=== PATIENT | male | born 1930 | race Asian ===

== ENCOUNTER 2020-10-11 14:52 | Emergency (ER) | payer OTHER ==
[~2020-10-11] VITALS: Ht 165.1 cm; Wt 89.0 kg
[~2020-10-11 14:52] MED LIST: ASPIRIN; PLAVIX
[2020-10-11] MEDS ORDERED: ACETAMINOPHEN WITH CODEINE 300/30MG TABLET PO ONE (17:15)
[2020-10-11 17:53] LABS: BASOPHILS % 0.8 % (0.0-2.0); EOSINOPHILS % 2.7 % (0.0-5.0); HEMATOCRIT. 37.6 % (42.0-52.0); HEMOGLOBIN. 12.6 g/dL (14.0-18.0); LYMPHOCYTES % 14.4 % (20.0-50.0); MEAN CORPUSCULAR HEMOGLOBIN 31.2 pg (28.0-32.0); MEAN CORPUSCULAR VOLUME 93.5 fL (80.0-94.0); MEAN PLATELET VOLUME 6.8 fl (7.4-10.4); MONOCYTES % 6.7 % (2.0-8.0); NEUTROPHILS % 75.4 % (40.0-76.0); PLATELET 194 x1000/uL (130-400); RED BLOOD CELL COUNT 4.02 mill/uL (4.7-6.1); RED CELL DISTRIBUTION WIDTH 13.6 % (11.6-14.6)
[2020-10-11 18:00] LABS: CHLORIDE 104 mEq/L (98-107)
[2020-10-11 18:06] LABS: CLARITY URINE CLEAR (CLEAR); COLOR URINE YELLOW (YELLOW); KETONES URINE NEGATIVE (NEGATIVE); LEUKOCYTE ESTERASE URINE NEGATIVE (NEGATIVE); NITRITE URINE NEGATIVE (NEGATIVE); OCCULT BLOOD URINE 2+ (NEGATIVE); PROTEIN URINE 1+ (NEGATIVE); SPECIFIC GRAVITY URINE 1.006 (1.005-1.030); UROBILINOGEN URINE 0.2 E.U./dL (0.2-1.0)
[2020-10-11] MEDS ORDERED: CYCL10TA7 MT (19:37)
[2020-10-11] MEDS ORDERED: KETOROLAC 60MG/2ML VIAL IM ONE (19:45)
[2020-10-11 20:07] VITALS: BP 98/64
== END 2020-10-11 20:21 | disposition home or self-care (01) ==
LOC: ER 14:52
DX: M54.5 Low back pain (principal); Z88.5 Allergy status to narcotic agent
CPT/HCPCS: 36415; 72131; 80053; 81003; 85025; 96372; 99284; J1885

== ENCOUNTER 2021-02-03 10:31 | Inpatient (IN) | payer OTHER ==
[~2021-02-03] VITALS: Ht 160 cm; Wt 48.1 kg
[~2021-02-03 10:31] MED LIST changes: +CYCL10TA7 MT
[2021-02-03] MEDS ORDERED: ONDANSETRON HCL 4MG/2ML INJ IV ONE (11:00)
[2021-02-03 11:32] LABS: BASOPHILS % 0.5 % (0.0-2.0); EOSINOPHILS % 0.6 % (0.0-5.0); HEMATOCRIT. 37.1 % (42.0-52.0); HEMOGLOBIN. 12.9 g/dL (14.0-18.0); MEAN CORPUSCULAR HEMOGLOBIN 32.5 pg (28.0-32.0); MEAN CORPUSCULAR VOLUME 93.3 fL (80.0-94.0); MEAN PLATELET VOLUME 6.6 fl (7.4-10.4); MONOCYTES % 8.2 % (2.0-8.0); NEUTROPHILS % 80.7 % (40.0-76.0); PLATELET 257 x1000/uL (130-400); RED BLOOD CELL COUNT 3.98 mill/uL (4.7-6.1)
[2021-02-03 11:34] LABS: CHLORIDE 94 mEq/L (98-107)
[2021-02-03 11:38] LABS: PROTHROMBIN TIME 10.9 sec (9.6-11.0)
[2021-02-03] MEDS ORDERED: SODIUM CHLORIDE 0.9% 1,000 ML IV ONE (12:15)
[2021-02-03] MEDS ORDERED: KETOROLAC 30MG/ML VIAL IV ONE (12:45)
[2021-02-03 13:15] LABS: CLARITY URINE CLEAR (CLEAR); COLOR URINE YELLOW (YELLOW); KETONES URINE 1+ (NEGATIVE); LEUKOCYTE ESTERASE URINE NEGATIVE (NEGATIVE); NITRITE URINE NEGATIVE (NEGATIVE); OCCULT BLOOD URINE 2+ (NEGATIVE); PH URINE 5.5 (4.5-8.0); PROTEIN URINE 1+ (NEGATIVE); SPECIFIC GRAVITY URINE 1.007 (1.005-1.030); UROBILINOGEN URINE 0.2 E.U./dL (0.2-1.0)
[2021-02-03] MEDS ORDERED: CLONIDINE 0.1MG TABLET PO PRN (14:45)
[2021-02-03] MEDS ORDERED: KETOROLAC 15MG/ML VIAL IV PRN (14:45)
[2021-02-03] MEDS ORDERED: IPRATROPIUM/ALBUTEROL 0.5-3(2.5)MG/3ML NEB NEB PRN (14:45)
[2021-02-03] MEDS ORDERED: ACETAMINOPHEN 325MG TABLET PO PRN ×2 (14:45)
[2021-02-03] MEDS ORDERED: NITROGLYCERIN 0.4MG TABLET SL SL PRN (14:45)
[2021-02-03] MEDS ORDERED: MAGNESIUM/ALUMINUM HYDROXIDE/SIMETHICONE 30ML UDC PO PRN (14:45)
[2021-02-03] MEDS ORDERED: GUAIFENESIN 200MG/10ML SUGAR FREE UDC PO PRN (14:45)
[2021-02-03] MEDS ORDERED: ENOXAPARIN 40MG/0.4ML SYR SUBCUT SCH (15:00)
[2021-02-03] MEDS: SODIUM CHLORIDE 0.9% 1,000 ML IV SCH (15:00)
[2021-02-03 16:05] LABS: ETHANOL BLOOD < 10 mg/dL
[2021-02-03 16:07] LABS: TOTAL IRON BINDING CAPACITY 344 ug/dL (250-450)
[2021-02-03 16:08] LABS: LDL CHOLESTEROL 130 mg/dL (5-100)
[2021-02-03 16:09] LABS: HDL CHOLESTEROL 56 mg/dL (40-59)
[2021-02-03 16:10] LABS: T4 FREE 1.47 ng/dL (0.76-1.46)
[2021-02-03 16:20] LABS: FOLIC ACID (FOLATE) SERUM 15.4 ng/mL (>5.38)
[2021-02-03 16:55] VITALS: BP 155/79
[2021-02-03] MEDS: ONDANSETRON HCL 4MG/2ML INJ IV PRN (18:33)
[2021-02-03] MEDS ORDERED: GABA-532 MT (19:00)
[2021-02-03] MEDS ORDERED: PNEUMOCOCCAL 23-VAL P-SAC VAC 0.5 ML IM ONE (19:30)
[2021-02-03 20:00] VITALS: BP 127/68
[2021-02-03] MEDS: ASCORBIC ACID 500 MG TABLET PO SCH (20:39)
[2021-02-03] MEDS: FAMOTIDINE 20MG TABLET PO SCH (20:39)
[2021-02-03] MEDS: ZOLPIDEM TARTRATE 5MG TABLET PO PRN (21:48)
[2021-02-03] MEDS: ENOXAPARIN 60MG/0.6ML SYR SUBCUT SCH (23:26)
[2021-02-04] VITALS: BP 136/79
[2021-02-04 00:09] LABS: CREATINE KINASE 43 IU/L (39-308)
[2021-02-04 00:11] LABS: CREATINE KINASE MB FRACTION 1.7 ng/mL (0.5-3.6)
[2021-02-04 04:00] VITALS: BP 124/69
[2021-02-04] MEDS: SODIUM CHLORIDE 0.9% 1,000 ML IV SCH ×2 (04:53→17:59)
[2021-02-04] MEDS: ONDANSETRON HCL 4MG/2ML INJ IV PRN ×3 (06:25→17:59)
[2021-02-04 07:14] LABS: EOSINOPHILS % 2.7 % (0.0-5.0); HEMATOCRIT. 32.1 % (42.0-52.0); HEMOGLOBIN. 10.9 g/dL (14.0-18.0); LYMPHOCYTES % 17.3 % (20.0-50.0); MEAN CORPUSCULAR VOLUME 94.5 fL (80.0-94.0); MEAN PLATELET VOLUME 6.7 fl (7.4-10.4); MONOCYTES % 11.8 % (2.0-8.0); NEUTROPHILS % 67.2 % (40.0-76.0); PLATELET 214 x1000/uL (130-400); RED CELL DISTRIBUTION WIDTH 12.8 % (11.6-14.6)
[2021-02-04 07:17] LABS: CHLORIDE 101 mEq/L (98-107)
[2021-02-04 07:27] LABS: PHOSPHORUS 3.2 mg/dL (2.5-4.9)
[2021-02-04 07:29] LABS: CREATINE KINASE 40 IU/L (39-308)
[2021-02-04 07:33] LABS: CREATINE KINASE MB FRACTION 1.7 ng/mL (0.5-3.6)
[2021-02-04 08:00] VITALS: BP 144/73
[2021-02-04] MEDS: ASCORBIC ACID 500 MG TABLET PO SCH ×2 (08:22→20:43)
[2021-02-04] MEDS: ASPIRIN 325MG EC TABLET PO SCH (08:25)
[2021-02-04] MEDS: DOCUSATE SODIUM 100MG CAPSULE PO PRN (08:25)
[2021-02-04] MEDS: ZINC SULFATE 220 MG ( 50 ) CAPSULE PO SCH (08:25)
[2021-02-04] MEDS: CLOPIDOGREL 75MG TABLET PO SCH (08:25)
[2021-02-04] MEDS: CHOLECALCIFEROL (D3) 1000 UNIT TABLET PO SCH (08:25)
[2021-02-04] MEDS: ENOXAPARIN 60MG/0.6ML SYR SUBCUT SCH ×2 (08:26→20:43)
[2021-02-04] MEDS ORDERED: IOHEXOL-350 100 ML BOTTLE ONE (10:34)
[2021-02-04 12:00] VITALS: BP 141/73
[2021-02-04 16:00] VITALS: BP 120/63
[2021-02-04 20:00] VITALS: BP 125/74
[2021-02-04] MEDS: FAMOTIDINE 20MG TABLET PO SCH (20:43)
[2021-02-04] MEDS: ZOLPIDEM TARTRATE 5MG TABLET PO PRN (22:35)
[2021-02-05] VITALS: BP 138/74
[2021-02-05 04:00] VITALS: BP 140/75
[2021-02-05] MEDS ORDERED: PNEUMOCOCCAL 23-VAL P-SAC VAC 0.5 ML IM ONE (06:00)
[2021-02-05] MEDS: SODIUM CHLORIDE 0.9% 1,000 ML IV SCH ×2 (06:15→21:26)
[2021-02-05 06:54] LABS: CHLORIDE 107 mEq/L (98-107)
[2021-02-05 06:56] LABS: BASOPHILS % 0.7 % (0.0-2.0); EOSINOPHILS % 2.5 % (0.0-5.0); HEMATOCRIT. 34.1 % (42.0-52.0); HEMOGLOBIN. 11.6 g/dL (14.0-18.0); MEAN CORPUSCULAR HEMOGLOBIN 31.7 pg (28.0-32.0); MEAN CORPUSCULAR VOLUME 93.5 fL (80.0-94.0); MEAN PLATELET VOLUME 6.6 fl (7.4-10.4); MONOCYTES % 10.3 % (2.0-8.0); NEUTROPHILS % 68.5 % (40.0-76.0); PLATELET 251 x1000/uL (130-400); RED BLOOD CELL COUNT 3.64 mill/uL (4.7-6.1); RED CELL DISTRIBUTION WIDTH 13.3 % (11.6-14.6)
[2021-02-05 08:00] VITALS: BP 156/74
[2021-02-05] MEDS: CHOLECALCIFEROL (D3) 1000 UNIT TABLET PO SCH (09:37)
[2021-02-05] MEDS: ENOXAPARIN 60MG/0.6ML SYR SUBCUT SCH (09:37)
[2021-02-05] MEDS: ZINC SULFATE 220 MG ( 50 ) CAPSULE PO SCH (09:38)
[2021-02-05] MEDS: ASPIRIN 325MG EC TABLET PO SCH (09:38)
[2021-02-05] MEDS: CLOPIDOGREL 75MG TABLET PO SCH (09:38)
[2021-02-05] MEDS: ASCORBIC ACID 500 MG TABLET PO SCH ×2 (09:38→21:26)
[2021-02-05] MEDS: DOCUSATE SODIUM 100MG CAPSULE PO PRN (09:38)
[2021-02-05] MEDS ORDERED: POTASSIUM CHLORIDE 20MEQ/PACKET PO SCH (10:45)
[2021-02-05 12:00] VITALS: BP 133/68
[2021-02-05 16:00] VITALS: BP 132/72
[2021-02-05 20:00] VITALS: BP 135/80
[2021-02-05] MEDS: ZOLPIDEM TARTRATE 5MG TABLET PO PRN (21:26)
[2021-02-05] MEDS: FAMOTIDINE 20MG TABLET PO SCH (21:26)
[2021-02-06 00:36] VITALS: BP 149/80
[2021-02-06 04:00] VITALS: BP 149/77
[2021-02-06 08:00] VITALS: BP 138/75
[2021-02-06] MEDS: CHOLECALCIFEROL (D3) 1000 UNIT TABLET PO SCH (08:50)
[2021-02-06] MEDS: ZINC SULFATE 220 MG ( 50 ) CAPSULE PO SCH (08:50)
[2021-02-06] MEDS: DOCUSATE SODIUM 100MG CAPSULE PO PRN (08:50)
[2021-02-06] MEDS: CLOPIDOGREL 75MG TABLET PO SCH (08:51)
[2021-02-06] MEDS: ASPIRIN 325MG EC TABLET PO SCH (08:51)
[2021-02-06] MEDS: SODIUM CHLORIDE 0.9% 1,000 ML IV SCH ×2 (08:51→20:58)
[2021-02-06] MEDS: ASCORBIC ACID 500 MG TABLET PO SCH ×2 (08:51→20:52)
[2021-02-06 12:00] VITALS: BP 126/73
[2021-02-06 16:00] VITALS: BP 140/76
[2021-02-06] MEDS: ONDANSETRON HCL 4MG/2ML INJ IV PRN (19:08)
[2021-02-06 20:00] VITALS: BP_SYST 127; BP_SYST 142; BP_DIAS 75; BP_DIAS 77
[2021-02-06] MEDS: FAMOTIDINE 20MG TABLET PO SCH (20:52)
[2021-02-06] MEDS: ZOLPIDEM TARTRATE 5MG TABLET PO PRN (20:52)
[2021-02-07] VITALS (7 sets, daily range): BP systolic 122–170; BP diastolic 67–89
[2021-02-07] MEDS: ZINC SULFATE 220 MG ( 50 ) CAPSULE PO SCH (08:12)
[2021-02-07] MEDS: ASPIRIN 325MG EC TABLET PO SCH (08:12)
[2021-02-07] MEDS: CLOPIDOGREL 75MG TABLET PO SCH (08:12)
[2021-02-07] MEDS: CHOLECALCIFEROL (D3) 1000 UNIT TABLET PO SCH (08:12)
[2021-02-07] MEDS: ASCORBIC ACID 500 MG TABLET PO SCH ×2 (08:12→20:51)
[2021-02-07] MEDS: SODIUM CHLORIDE 0.9% 1,000 ML IV SCH (12:22)
[2021-02-07] MEDS: FAMOTIDINE 20MG TABLET PO SCH (20:51)
[2021-02-08] VITALS: BP 145/81
[2021-02-08 04:00] VITALS: BP 155/79
[2021-02-08] MEDS: SODIUM CHLORIDE 0.9% 1,000 ML IV SCH ×2 (07:02→17:45)
[2021-02-08 08:00] VITALS: BP 143/74
[2021-02-08] MEDS: ZINC SULFATE 220 MG ( 50 ) CAPSULE PO SCH (08:48)
[2021-02-08] MEDS: ASPIRIN 325MG EC TABLET PO SCH (08:49)
[2021-02-08] MEDS: CLOPIDOGREL 75MG TABLET PO SCH (08:49)
[2021-02-08] MEDS: ASCORBIC ACID 500 MG TABLET PO SCH ×2 (08:49→21:19)
[2021-02-08] MEDS: CHOLECALCIFEROL (D3) 1000 UNIT TABLET PO SCH (08:49)
[2021-02-08 12:00] VITALS: BP 136/71
[2021-02-08 16:00] VITALS: BP 114/71
[2021-02-08 20:00] VITALS: BP 155/72
[2021-02-08] MEDS: FAMOTIDINE 20MG TABLET PO SCH (21:19)
[2021-02-09] VITALS: BP 146/80
[2021-02-09 04:00] VITALS: BP 136/80
[2021-02-09] MEDS: SODIUM CHLORIDE 0.9% 1,000 ML IV SCH ×2 (05:58→17:59)
[2021-02-09 08:00] VITALS: BP 154/89
[2021-02-09] MEDS: CHOLECALCIFEROL (D3) 1000 UNIT TABLET PO SCH (08:13)
[2021-02-09] MEDS: ASPIRIN 325MG EC TABLET PO SCH (08:13)
[2021-02-09] MEDS: ASCORBIC ACID 500 MG TABLET PO SCH ×2 (08:14→20:47)
[2021-02-09] MEDS: CLOPIDOGREL 75MG TABLET PO SCH (08:14)
[2021-02-09] MEDS: ZINC SULFATE 220 MG ( 50 ) CAPSULE PO SCH (08:14)
[2021-02-09 12:00] VITALS: BP 136/76
[2021-02-09 16:00] VITALS: BP 147/81
[2021-02-09 20:00] VITALS: BP 142/75
[2021-02-09] MEDS: FAMOTIDINE 20MG TABLET PO SCH (20:47)
[2021-02-10] VITALS: BP 147/82
[2021-02-10 04:00] VITALS: BP 128/72
[2021-02-10] MEDS: SODIUM CHLORIDE 0.9% 1,000 ML IV SCH (07:01)
[2021-02-10 08:00] VITALS: BP 131/79
[2021-02-10] MEDS: ASCORBIC ACID 500 MG TABLET PO SCH (09:23)
[2021-02-10] MEDS: CLOPIDOGREL 75MG TABLET PO SCH (09:23)
[2021-02-10] MEDS: ZINC SULFATE 220 MG ( 50 ) CAPSULE PO SCH (09:23)
[2021-02-10] MEDS: CHOLECALCIFEROL (D3) 1000 UNIT TABLET PO SCH (09:23)
[2021-02-10] MEDS: ASPIRIN 325MG EC TABLET PO SCH (09:23)
[2021-02-10 12:00] VITALS: BP 138/80
[2021-02-10 13:54] VITALS: BP 138/80
== END 2021-02-10 15:54 | DRG 640 ==
LOC: ER 10:31 → 7EST 13:55 → EDBEDREQTM 14:20 → EDBEDREQ 14:20 → ENRESERV 15:08
PROVIDERS: ADMIT Internal Medicine; ATTEND Internal Medicine
DX: E87.1 Hypo-osmolality and hyponatremia (principal); E43 Unspecified severe protein-calorie malnutrition; Z68.1 Body mass index [BMI] 19.9 or less, adult; I10 Essential (primary) hypertension; J44.9 Chronic obstructive pulmonary disease, unspecified; D63.8 Anemia in other chronic diseases classified elsewhere; Z20.822 Contact with and (suspected) exposure to COVID-19; X58.XXXD Exposure to other specified factors, subsequent encounter; Z85.118 Personal history of other malignant neoplasm of bronchus and lung; Z95.5 Presence of coronary angioplasty implant and graft; Z79.82 Long term (current) use of aspirin; S42.91XD Fracture of right shoulder girdle, part unspecified, subsequent encounter for fracture with routine healing; Z79.899 Other long term (current) drug therapy; R79.89 Other specified abnormal findings of blood chemistry
CPT/HCPCS: 36415; 71045; 71275; 73030; 80053; 80061; 80320; 81003; 82550; 82553; 82607; 82728; 82746; 83036; 83540; 83550; 83605; 83735; 84100; 84145; 84439; 84443; 84484; 85025; 85379; 87426; 90732; 93005; 93970; 97162; 97166; 97530; 99285; A4565; J1650; J1885; J2405; J7030; Q9967; G0480

== ENCOUNTER 2021-10-30 16:14 | Inpatient (IN) | payer OTHER, MEDICARE ==
[~2021-10-30] VITALS: Ht 160 cm; Wt 60.0 kg
[~2021-10-30 16:14] MED LIST changes: +CYCL10TA21 MT; -CYCL10TA7 MT; +GABA-532 MT
[2021-10-30 18:01] LABS: HEMATOCRIT. 37.9 % (42.0-52.0); HEMOGLOBIN. 12.5 g/dL (14.0-18.0); MEAN CORPUSCULAR HEMOGLOBIN 31.1 pg (28.0-32.0); MEAN PLATELET VOLUME 6.2 fl (7.4-10.4); PLATELET 194 x1000/uL (130-400); RED BLOOD CELL COUNT 4.03 mill/uL (4.7-6.1); RED CELL DISTRIBUTION WIDTH 13.3 % (11.6-14.6)
[2021-10-30 18:09] LABS: CHLORIDE 98 mEq/L (98-107)
[2021-10-30 18:20] LABS: ETHANOL BLOOD < 10 mg/dL; PLATELET ESTIMATE NORMAL
[2021-10-30 18:32] LABS: PROTHROMBIN TIME 10.8 sec (9.6-11.0)
[2021-10-30] MEDS ORDERED: SODIUM CHLORIDE 0.9% 1,000 ML IV ONE (18:45)
[2021-10-30 19:28] LABS: CLARITY URINE CLEAR (CLEAR); COLOR URINE YELLOW (YELLOW); KETONES URINE NEGATIVE (NEGATIVE); LEUKOCYTE ESTERASE URINE NEGATIVE (NEGATIVE); NITRITE URINE NEGATIVE (NEGATIVE); OCCULT BLOOD URINE TRACE (NEGATIVE); PROTEIN URINE 1+ (NEGATIVE); SPECIFIC GRAVITY URINE 1.011 (1.005-1.030); UROBILINOGEN URINE 0.2 E.U./dL (0.2-1.0)
[2021-10-30 19:51] LABS: *AMPHETAMINES SCREEN URINE NEGATIVE (NEGATIVE); *BARBITURATES SCREEN URINE NEGATIVE (NEGATIVE); *BENZODIAZEPINES SCREEN URINE NEGATIVE (NEGATIVE); *COCAINE SCREEN URINE NEGATIVE (NEGATIVE); CANNABINOID URINE SCREEN NEGATIVE (NEGATIVE); METHADONE URINE SCREEN NEGATIVE (NEGATIVE); OPIATES URINE SCREEN NEGATIVE (NEGATIVE); PHENCYCLIDINE URINE SCREEN NEGATIVE (NEGATIVE)
[2021-10-30] MEDS ORDERED: CEFTRIAXONE 1 G PREMIX 50 ML IV ONE (21:00)
[2021-10-30] MEDS ORDERED: AZITHROMYCIN 500 MG in DEXT 5% WATER 250 ML IV SCH (22:15)
[2021-10-30] MEDS ORDERED: ACETAMINOPHEN 325MG TABLET PO ONE (22:15)
[2021-10-31 02:40] VITALS: BP 110/44
[2021-10-31 03:00] VITALS: BP 110/44
[2021-10-31] MEDS ORDERED: ZOLP10TA2 PO (04:03)
[2021-10-31] MEDS ORDERED: ASPI-1406 PO (04:03)
[2021-10-31] MEDS ORDERED: ONDANSETRON HCL 4MG/2ML INJ IV PRN (05:45)
[2021-10-31 08:00] VITALS: BP 102/56
[2021-10-31 08:18] LABS: HEMATOCRIT. 36.3 % (42.0-52.0); MEAN CORPUSCULAR HEMOGLOBIN 30.7 pg (28.0-32.0); MEAN CORPUSCULAR VOLUME 93.1 fL (80.0-94.0); MEAN PLATELET VOLUME 6.9 fl (7.4-10.4); PLATELET 165 x1000/uL (130-400); RED BLOOD CELL COUNT 3.89 mill/uL (4.7-6.1); RED CELL DISTRIBUTION WIDTH 13.4 % (11.6-14.6)
[2021-10-31 08:20] LABS: CHLORIDE 104 mEq/L (98-107)
[2021-10-31] MEDS ORDERED: CEFTRIAXONE 1 G PREMIX 50 ML IV SCH (09:00)
[2021-10-31 12:00] VITALS: BP 111/58
[2021-10-31] MEDS: ASPIRIN 81MG TABLET PO SCH (13:50)
[2021-10-31 16:00] VITALS: BP 115/60
[2021-10-31 19:58] VITALS: BP 121/54
[2021-10-31] MEDS: CEFTRIAXONE 1,000 MG in DEXTROSE 5% WATER 50 ML IV SCH (20:41)
[2021-11-01] VITALS: BP 120/69
[2021-11-01 04:00] VITALS: BP 128/71
[2021-11-01 07:41] LABS: HEMATOCRIT. 39.4 % (42.0-52.0); HEMOGLOBIN. 13.1 g/dL (14.0-18.0); MEAN CORPUSCULAR HEMOGLOBIN 31.2 pg (28.0-32.0); MEAN CORPUSCULAR VOLUME 94.2 fL (80.0-94.0); MEAN PLATELET VOLUME 7.3 fl (7.4-10.4); PLATELET 157 x1000/uL (130-400); RED BLOOD CELL COUNT 4.18 mill/uL (4.7-6.1); RED CELL DISTRIBUTION WIDTH 13.7 % (11.6-14.6)
[2021-11-01 08:00] VITALS: BP 132/69
[2021-11-01 08:04] LABS: PLATELET ESTIMATE NORMAL
[2021-11-01 08:15] LABS: CHLORIDE 102 mEq/L (98-107)
[2021-11-01] MEDS: ASPIRIN 81MG TABLET PO SCH (09:13)
[2021-11-01 12:00] VITALS: BP 131/68
[2021-11-01 13:38] LABS: PLATELET ESTIMATE NORMAL
[2021-11-01 16:00] VITALS: BP_SYST 150; BP_SYST 151; BP_SYST 159; BP_DIAS 69; BP_DIAS 71
[2021-11-01] MEDS ORDERED: GADOTERATE MEGLUMINE 5 MMOL/10 ML VIAL IV ONE (17:37)
[2021-11-01 20:00] VITALS: BP 102/59
[2021-11-01] MEDS ORDERED: NALOXONE HCL 0.4MG/ML VIAL IV PRN (20:30)
[2021-11-01] MEDS: HYDROCODONE/ACETAMINOPHEN 5/325MG TABLET PO PRN (21:00)
[2021-11-01] MEDS: CEFTRIAXONE 1,000 MG in DEXTROSE 5% WATER 50 ML IV SCH (21:00)
[2021-11-02] VITALS: BP 120/70
[2021-11-02 04:00] VITALS: BP 118/65
[2021-11-02 08:00] VITALS: BP 120/77
[2021-11-02] MEDS: ASPIRIN 81MG TABLET PO SCH (08:19)
[2021-11-02 11:51] VITALS: BP 129/79
[2021-11-02 16:00] VITALS: BP 118/68
[2021-11-02 19:36] VITALS: BP 127/74
[2021-11-02] MEDS: CEFTRIAXONE 1,000 MG in DEXTROSE 5% WATER 50 ML IV SCH (21:56)
[2021-11-03 00:11] VITALS: BP 142/76
[2021-11-03] MEDS: HYDROCODONE/ACETAMINOPHEN 5/325MG TABLET PO PRN (00:16)
[2021-11-03] MEDS: ZOLPIDEM TARTRATE 5MG TABLET PO PRN (00:16)
[2021-11-03 04:00] VITALS: BP 132/75
[2021-11-03 08:00] VITALS: BP 121/64
[2021-11-03] MEDS: ASPIRIN 81MG TABLET PO SCH (09:18)
[2021-11-03] MEDS: CLOPIDOGREL 75MG TABLET PO SCH (09:18)
[2021-11-03 12:00] VITALS: BP 117/66
[2021-11-03 15:49] LABS: BASOPHILS % 0.6 % (0.0-2.0); EOSINOPHILS % 2.2 % (0.0-5.0); HEMATOCRIT. 38.6 % (42.0-52.0); HEMOGLOBIN. 12.9 g/dL (14.0-18.0); LYMPHOCYTES % 10.2 % (20.0-50.0); MEAN CORPUSCULAR HEMOGLOBIN 31.3 pg (28.0-32.0); MEAN CORPUSCULAR VOLUME 93.3 fL (80.0-94.0); MEAN PLATELET VOLUME 7.2 fl (7.4-10.4); MONOCYTES % 12.5 % (2.0-8.0); NEUTROPHILS % 74.5 % (40.0-76.0); PLATELET 158 x1000/uL (130-400); RED BLOOD CELL COUNT 4.14 mill/uL (4.7-6.1); RED CELL DISTRIBUTION WIDTH 13.4 % (11.6-14.6)
[2021-11-03 15:53] LABS: CHLORIDE 96 mEq/L (98-107)
[2021-11-03 16:00] VITALS: BP 127/85
[2021-11-03 20:00] VITALS: BP 115/56
[2021-11-03] MEDS: CEFTRIAXONE 1,000 MG in DEXTROSE 5% WATER 50 ML IV SCH (20:49)
[2021-11-03] MEDS ORDERED: ACETAMINOPHEN 650MG/20.3ML UDC PO PRN (21:00)
[2021-11-03] MEDS: DOCUSATE SODIUM 250MG CAPSULE PO SCH (21:54)
[2021-11-04] VITALS: BP 138/72
[2021-11-04] MEDS: ZOLPIDEM TARTRATE 5MG TABLET PO PRN ×2 (00:07→23:50)
[2021-11-04] MEDS ORDERED: ACETAMINOPHEN 325MG TABLET PO PRN (01:00)
[2021-11-04 04:00] VITALS: BP 116/61
[2021-11-04 08:00] VITALS: BP 120/67
[2021-11-04] MEDS: DOCUSATE SODIUM 250MG CAPSULE PO SCH (08:26)
[2021-11-04] MEDS: CLOPIDOGREL 75MG TABLET PO SCH (08:26)
[2021-11-04] MEDS: ASPIRIN 81MG TABLET PO SCH (08:26)
[2021-11-04 12:00] VITALS: BP 105/58
[2021-11-04 16:00] VITALS: BP 127/61
[2021-11-04 20:00] VITALS: BP_SYST 106; BP_SYST 113; BP_SYST 115; BP_DIAS 62; BP_DIAS 66; BP_DIAS 74
[2021-11-04] MEDS ORDERED: NALOXONE HCL 0.4MG/ML VIAL IV PRN (20:00)
[2021-11-04] MEDS: CEFTRIAXONE 1,000 MG in DEXTROSE 5% WATER 50 ML IV SCH (20:07)
[2021-11-05] VITALS: BP 126/70
[2021-11-05 04:00] VITALS: BP 134/80
[2021-11-05 08:00] VITALS: BP 125/79
[2021-11-05] MEDS: ASPIRIN 81MG TABLET PO SCH (08:50)
[2021-11-05] MEDS: DOCUSATE SODIUM 250MG CAPSULE PO SCH (08:50)
[2021-11-05] MEDS: CLOPIDOGREL 75MG TABLET PO SCH (08:50)
[2021-11-05 12:00] VITALS: BP 115/63
[2021-11-05 14:16] VITALS: BP 116/65
== END 2021-11-05 16:25 | disposition home health service (06) | DRG 871 ==
LOC: ER 16:14 → MICUSO 22:31 → 8WST 10-31 02:06
PROVIDERS: ADMIT Internal Medicine; ATTEND Internal Medicine
DX: A41.9 Sepsis, unspecified organism (principal); J18.9 Pneumonia, unspecified organism; E44.1 Mild protein-calorie malnutrition; J44.0 Chronic obstructive pulmonary disease with (acute) lower respiratory infection; E87.1 Hypo-osmolality and hyponatremia; M54.30 Sciatica, unspecified side; Z20.822 Contact with and (suspected) exposure to COVID-19; G90.8 Other disorders of autonomic nervous system; D64.9 Anemia, unspecified; Z85.118 Personal history of other malignant neoplasm of bronchus and lung; Z87.891 Personal history of nicotine dependence; I25.2 Old myocardial infarction; Z68.23 Body mass index [BMI] 23.0-23.9, adult; Z88.8 Allergy status to other drugs, medicaments and biological substances; Z79.82 Long term (current) use of aspirin; K52.9 Noninfective gastroenteritis and colitis, unspecified
CPT/HCPCS: 36415; 70553; 71045; 80048; 80053; 80305; 80320; 81003; 82962; 83880; 84484; 85025; 87426; 93005; 93306; 97116; 97162; 97530; 99285; A9577; C9803; J0456; J0696; J7030; J7060; G0480